=== PATIENT | male | born 1965 | race Caucasian/White ===

== ENCOUNTER 2025-04-06 07:28 | Emergency (ER) | payer BC ==
[~2025-04-06] VITALS: Ht 193 cm; Wt 103.2 kg
[2025-04-06 07:53] LABS: LEUKOCYTE ESTERASE ,URINE NEGATIVE (Neg); NITRITES, URINE NEGATIVE (Neg); OCCULT BLOOD,URINE NEGATIVE (Neg)
[2025-04-06 08:00] LABS: MEAN PLATELET VOLUME 7.4 FL (7.4-10.4); RED CELL DISTRIBUTION WIDTH 14.7 % (11.5-14.5)
--- NOTE | 2025-04-06 08:09 | Physician Documentation ---
History of Present Illness General Chief Complaint: Abdominal Pain Stated Complaint: ABD PAIN Time Seen by : 08:05 Mode of Arrival: POV Medication Reconciliation Allergies: Coded Allergies: Penicillins (Unverified Allergy, Unknown, RASH, 04/06/25) Physical Exam Physical Exam Vital Signs: Temperature: 97.6, Source: Temporal, Heart Rate: 114, Respiratory Rate: 16, BP: 132/88, Pulse Oximetry: 96, Weight: 103.200 Oxygen Flow Rate: 0 Progress Results/Orders Results/Orders Orders - RUTHIE HOLDER MD Ct Abdomen Pelvis (04/06/25 08:46) Completed Orders - RUTHIE HOLDER MD Urinalysis, Cult If Indicated (04/06/25 07:34) Cbc/Diff (04/06/25 07:34) Lipase (04/06/25 07:34) CMP (04/06/25 07:34) Ct Abdomen Pelvis (04/06/25 08:46) Normal Saline 1000ml (0.9% Sodium Chlori (04/06/25 09:05) Acetaminophen 1,000mg/100ml Iv (Ofirmev (04/06/25 09:15) Medications Received in ER Medications (Trade) Dose Ordered Sig/[place] Route PRN Reason Start Time Stop Time Status Last Admin Dose Admin (0.9% sodium chloride (NS) 1000ml IV soln) 2,000 ml ONCE ONCE IVB 04/06/25 09:05 04/06/25 09:06 DC 04/06/25 09:14 2,000 ML Acetaminophen 100 ml @ 400 mls/hr ONCE ONCE IV 04/06/25 09:15 04/06/25 09:29 DC 04/06/25 09:20 400 MLS/HR Vital Signs 04/06/25 04/06/25 04/06/25 04/06/25 07:32 07:46 08:31 10:04 Temp 97.6 Pulse 114 84 82 Resp 20 16 18 B/P (MAP) 132/88 122/82 (95) 108/63 (78) Pulse Ox 96 94 98 O2 Flow Rate 0 0 0 Laboratory Tests Test 04/06/25 07:44 04/06/25 07:47 Urine Specimen Description Cln catch midstream Urine Color Yellow Urine Clarity Clear Urine pH 6.0 Urine Specific [place] 1.020 Urine Protein Negative Urine Glucose (UA) Negative Urine Ketones Negative Urine Occult Blood Negative Urine Nitrite Negative Urine Bilirubin Negative Urine Urobilinogen 0.2 Urine Leukocyte Esterase Negative Urine Culture Indicated Not ind Volume Urine Centrifuged 10 ml Urine Comment White Blood Count 11.8 H Red Blood Count 5.54 Hemoglobin 15.7 Hematocrit 46.0 Mean Corpuscular Volume 83.0 Mean Corpuscular Hemoglobin 28.4 Mean Corpuscular Hemoglobin Concent 34.3 Red Cell Distribution Width 14.7 H Platelet Count 237 Mean Platelet Volume 7.4 Neutrophils (%) (Auto) 80.6 H Lymphocytes (%) (Auto) 9.2 L Monocytes (%) (Auto) 9.2 Eosinophils (%) (Auto) 0.4 Basophils (%) (Auto) 0.6 Neutrophils # (Auto) 9.5 H Lymphocytes # (Auto) 1.1 Monocytes # (Auto) 1.1 H Eosinophils # (Auto) 0.1 Basophils # (Auto) 0.1 CBC Comment Sodium Level 138 Potassium Level 4.0 Chloride Level 104 Carbon Dioxide Level 24.6 Anion Gap 9 Blood Urea Nitrogen 19 H Creatinine 2.03 H Estimated GFR/1.73 m2 34 BUN/Creatinine Ratio 9.4 L Glucose Level 118 H Calcium Level 8.7 Total Bilirubin 0.9 Aspartate Amino Transf (AST/SGOT) 26 Alanine Aminotransferase (ALT/SGPT) 51 Alkaline Phosphatase 82 Total Protein 7.9 Albumin 4.1 Globulin 3.8 Albumin/Globulin Ratio 1.1 Lipase 49 Chemistry Comments Departure Referrals: NO PRIMARY CARE PROVIDER (PCP) RUTHIE HOLDER MD Apr 06, 2025 08:09
[2025-04-06 08:10] LABS: CREATININE 2.03 MG/DL (0.60-1.10); TOTAL CARBON DIOXIDE 24.6 MMOL/L (24-32); eCRCL 49 ML/MIN; eGFR 34 ML/MIN
[2025-04-06 08:13] LABS: UA COLLECTION TYPE CLN CATCH MIDSTREAM
--- NOTE | 2025-04-06 08:17 | Physician Documentation ---
History of Present Illness General Chief Complaint: Abdominal Pain Stated Complaint: ABD PAIN Time Seen by MD: 08:05 Source: patient Mode of Arrival: POV History of Present Illness Initial Comments 59 y/o M presenting to the ED with 52 hours of LLQ pain. It woke him suddenly from sleep, and he had nausea and vomited from the pain. The pain radiates to the surrounding area but otherwise has not moved since onset and is well localized. It has been on/off and consistent in severity since onset. Ibuprofen has helped lower the pain from 8/10 to 4/10 severity. He feels like it was similar to a kidney stone he has had 1 previous time and which passed spontaneously. Hx of renal cell carcinoma in father. He has not had a bowel mo vement in 3-4 days. He denies fever, chills, dysuria, blood in urine, night sweats, recent weight changes, or nausea or vomiting since the initial episode. He endorses SOB which he attributes to the pain. Timing/Duration: days Severity: moderate Modifying Factors: improves with medication Associated Symptoms: shortness of breath (associated with pain) Medication Reconciliation Allergies: Coded Allergies: Penicillins (Unverified Allergy, Unknown, RASH, 04/06/25) Scheduled Tamsulosin Hcl* (Flomax*), 0.4 MG PO DAILY Scheduled PRN Hydrocodone Bit/Acetaminophen (Hydrocodone-Apap 10-325 Tablet), 1 TABLET PO Q8H PRN for pain ONDANSETRON ODT 4mg tablet (Ondansetron Odt), 1 TABLET PO Q6H PRN for nausea/vomiting Past Medical History Past Medical History: Kidney Stones Past Surgical History: orthopedic surgeries Other Past Family History: renal cell carcinoma in father Smoking: Non-Smoker Alcohol Use: Occasionally Drug Use: none Review of Systems All Other Systems at this time: Reviewed and Negative Physical Exam Physical Exam Vital Signs: Temperature: 97.6, Source: Temporal, Heart Rate: 114, Respiratory Rate: 16, BP: 132/88, Pulse Oximetry: 96, Weight: 103.200 Oxygen Flow Rate: 0 Physical Exam VITALS: Reviewed and as above. GENERAL: Alert, no apparent distress. HEENT: Normocephalic, atraumatic, PERRL, EOMI, dry mucosa, no erythema RESPIRATORY: Lungs clear, normal breath sounds, no respiratory distress. CHEST: No accessory muscle use, no retractions CV: Regular rate, rhythm, no edema, no murmur, No: JVD GI: Soft, bowels sounds present, no rebound, guarding, or rigidity. No abdominal distension. Tenderness to deep palpation in LLQ. BACK: No CVA tenderness, or swelling MUSCULOSKELETAL No deformities, no edema SKIN: Warm and dry, no rash NEURO: Oriented x4, No motor or sensory deficit PSYCH: Normal mood and affect, no agitation Progress Results/Orders Results/Orders Orders - RUTHIE ORTIZ MD Ct Abdomen Pelvis (04/06/25 08:46) Md Mamadou Cheney (04/06/25 ) Completed Orders - RUTHIE ORTIZ MD Urinalysis, Cult If Indicated (04/06/25 07:34) Cbc/Diff (04/06/25 07:34) Lipase (04/06/25 07:34) CMP (04/06/25 07:34) Ct Abdomen Pelvis (04/06/25 08:46) Normal Saline 1000ml (0.9% Sodium Chlori (04/06/25 09:05) Acetaminophen 1,000mg/100ml Iv (Ofirmev (04/06/25 09:15) Vital Signs 04/06/25 04/06/25 04/06/25 04/06/25 07:32 07:46 08:31 10:04 Temp 97.6 Pulse 114 84 82 Resp 20 16 18 B/P (MAP) 132/88 122/82 (95) 108/63 (78) Pulse Ox 96 94 98 O2 Flow Rate 0 0 0 04/06/25 11:49 Temp 97.6 Pulse 80 Resp 16 B/P (MAP) 111/74 Pulse Ox 94 Laboratory Tests Test 04/06/25 07:44 04/06/25 07:47 Urine Specimen Description Cln catch midstream Urine Color Yellow Urine Clarity Clear Urine pH 6.0 Urine Specific [place] 1.020 Urine Protein Negative Urine Glucose (UA) Negative Urine Ketones Negative Urine Occult Blood Negative Urine Nitrite Negative Urine Bilirubin Negative Urine Urobilinogen 0.2 Urine Leukocyte Esterase Negative Urine Culture Indicated Not ind Volume Urine Centrifuged 10 ml Urine Comment White Blood Count 11.8 H Red Blood Count 5.54 Hemoglobin 15.7 Hematocrit 46.0 Mean Corpuscular Volume 83.0 Mean Corpuscular Hemoglobin 28.4 Mean Corpuscular Hemoglobin Concent 34.3 Red Cell Distribution Width 14.7 H Platelet Count 237 Mean Platelet Volume 7.4 Neutrophils (%) (Auto) 80.6 H Lymphocytes (%) (Auto) 9.2 L Monocytes (%) (Auto) 9.2 Eosinophils (%) (Auto) 0.4 Basophils (%) (Auto) 0.6 Neutrophils # (Auto) 9.5 H Lymphocytes # (Auto) 1.1 Monocytes # (Auto) 1.1 H Eosinophils # (Auto) 0.1 Basophils # (Auto) 0.1 CBC Comment Sodium Level 138 Potassium Level 4.0 Chloride Level 104 Carbon Dioxide Level 24.6 Anion Gap 9 Blood Urea Nitrogen 19 H Creatinine 2.03 H Estimated GFR/1.73 m2 34 BUN/Creatinine Ratio 9.4 L Glucose Level 118 H Calcium Level 8.7 Total Bilirubin 0.9 Aspartate Amino Transf (AST/SGOT) 26 Alanine Aminotransferase (ALT/SGPT) 51 Alkaline Phosphatase 82 Total Protein 7.9 Albumin 4.1 Globulin 3.8 Albumin/Globulin Ratio 1.1 Lipase 49 Chemistry Comments EKG/XRAY/CT/US/VASC/MRI CT : Impression Patient: MARTHA ANTOINE Medical Record: [id number] [facility] : 1965, Age: 59 Sex: Male Location: ER Patient Status: [facility] ER Service Date/Time: 04/06/25845 Ordering Physician: RUTHIE ORTIZ MD Exam: CT ABDOMEN PELVIS CLINICAL HISTORY: abd pain TECHNIQUE: CT of the abdomen and pelvis was performed without IV contrast. This exam was performed according to our departmental dose optimization program. Up-to-date CT equipment and radiation dose reduction techniques are utilized as appropriate. CTDI 27 DLP 1590 COMPARISON: None FINDINGS: Abdomen/Pelvis: The pancreas, adrenal glands, gallbladder, right kidney, and prostate gland are grossly unremarkable. There is a 5 mm left UVJ calculus resulting in mild left hydroureteronephrosis and perinephric/periureteral inflammatory change. There is a small amount of left perinephric fluid. The spleen is mildly enlarged, measuring 14 cm in long axis. There is diffuse hepatic steatosis. The abdominal aorta is normal in course and caliber. There are minimal aortic atherosclerotic calcifications. There is no free intraperitoneal air. There is trace scattered ascites. There is no enlarged abdominal pelvic lymph node. There is no bowel wall thickening or dilatation. The appendix is normal. There is mild proximal sigmoid colon diverticulosis. Other: The imaged lower thorax demonstrates miniscule bilateral pleural effusions with adjacent atelectasis. No acute osseous abnormality is evident. Impression: 5 mm left UVJ calculus resulting in moderate upstream hydroureteronephrosis. Diffuse hepatic steatosis. Mild splenomegaly. Minimal proximal sigmoid colon diverticulosis. Trace ascites. Electronically Signed by:LIBBY GRANDE MD Date & Time: 04/06/25937 Dictated by: LIBBY GRANDE MD Dictation date and time: 04/06/25937 Primary Care Provider: NO PRIMARY CARE PROVIDER cc: RUTHIE ORTIZ MD ~ Medical Decision Making Additional information obtaine: old records Findings The patient presented with left lower abdominal pain x3 days patient has a history of kidney stones he was found to have a creatinine of two I am on sure of what his normal baseline creatinine was he was clinically dehydrated the patient was hydrated in the emergency department CT imaging was reviewed by me it demonstrated hydronephrosis as well as perinephric stranding with free fluid adjacent to the kidney there was also a 5 mm kidney stone that was identified at the UVJ on the left side, the the solid organs looked unremarkable in his soft tissue of the abdomen looked unremarkable. II interpreted as showing a kidney stone. I have reviewed the radiologist's interpretation as well patient was giv en IV fluids as well as pain medication in the emergency room with improvement in his pain the patient is hemodynamically stable. His pulse oximetry was interpreted as adequate normal in his surveillance system monitor was interpreted as a sinus rhythm. The case was discussed with Dr. Kirby she is comfortable with the patient being discharged as as there was no evidence of infection at this time the patient has been advised to follow up to have his creatinine rechecked and to drink plenty of fluid. The patient also has been advised to return for worsening of his symptoms or if he develops fevers the patient will be discharged. Prior hospitalizations were reviewed Differential Diagnosis Diverticulitis, UTI, renal colic Departure Impression: Primary Impression: Abdominal pain Qualified Codes: R10.9 - Unspecified abdominal pain Additional Impression: Kidney stone on left side Condition: Stable Referrals: NO PRIMARY CARE PROVIDER (PCP) MARKO KIRBY MD Prescriptions ONDANSETRON ODT 4mg tablet (ONDANSETRON ODT) 4 Mg Tab.rapdis 1 TABLET PO Q6H PRN for nausea/vomiting, #12 TABLET Prov: RUTHIE ORTIZ MD 04/06/25 Hydrocodone Bit/Acetaminophen (Hydrocodone-Apap 10-325 Tablet) 10mg/325mg Tablet 1 TABLET PO Q8H PRN for pain, #8 TABLET Prov: RUTHIE ORTIZ MD 04/06/25 Tamsulosin Hcl* (Flomax*) 0.4 Mg Cap.sr.24h 0.4 MG PO DAILY, #14 CAP Prov: RUTHIE ORTIZ MD 04/06/25 Signature Scribe Signature: no scribe Attestation: The note accurately reflects work and decisions made by me.Ruthie Ortiz MD 04/07/25 06:43 RUTHIE ORTIZ MD Apr 06, 2025 08:16
[2025-04-06] MEDS: normal saline 1000ML IV soln IVB ONE (09:14)
[2025-04-06] MEDS: acetaminophen 1,000mg/100ml IV 100 ML IV ONE (09:20)
--- NOTE | 2025-04-06 09:40 | RADIOLOGY REPORT ---
CLINICAL HISTORY: abd pain TECHNIQUE: CT of the abdomen and pelvis was performed without IV contrast. This exam was performed according to our departmental dose optimization program. Up-to-date CT equipment and radiation dose reduction techniques are utilized as appropriate. CTDI 27 DLP 1590 COMPARISON: None FINDINGS: Abdomen/Pelvis: The pancreas, adrenal glands, gallbladder, right kidney, and prostate gland are grossly unremarkable. There is a 5 mm left UVJ calculus resulting in mild left hydroureteronephrosis and perinephric/periureteral inflammatory change. There is a small amount of left perinephric fluid. The spleen is mildly enlarged, measuring 14 cm in long axis. There is diffuse hepatic steatosis. The abdominal aorta is normal in course and caliber. There are minimal aortic atherosclerotic calcifications. There is no free intraperitoneal air. There is trace scattered ascites. There is no enlarged abdominal pelvic lymph node. There is no bowel wall thickening or dilatation. The appendix is normal. There is mild proximal sigmoid colon diverticulosis. Other: The imaged lower thorax demonstrates miniscule bilateral pleural effusions with adjacent atelectasis. No acute osseous abnormality is evident. Impression: 5 mm left UVJ calculus resulting in moderate upstream hydroureteronephrosis. Diffuse hepatic steatosis. Mild splenomegaly. Minimal proximal sigmoid colon diverticulosis. Trace ascites.
[2025-04-06] MEDS ORDERED: ONDA-243 PO (11:39)
[2025-04-06] MEDS ORDERED: HYDR-3973 PO (11:39)
[2025-04-06] MEDS ORDERED: TAMS-55 PO (11:39)
[2025-04-06 11:49] VITALS: BP 111/74; PULSE 80; RESP 16; TEMP 97.6; O2SAT 94
== END 2025-04-06 11:56 | disposition home or self-care (01) ==
LOC: ER 07:29
DX: N20.0 Calculus of kidney (principal); Z87.442 Personal history of urinary calculi; Z88.0 Allergy status to penicillin; Z79.899 Other long term (current) drug therapy; Z72.89 Other problems related to lifestyle
CPT/HCPCS: 36415; 74176; 80053; 81003; 83690; 85025; 96365; 99285; J0131; J7030